=== PATIENT | female | born 1995 | race Caucasian/White ===

== ENCOUNTER 2023-05-06 06:13 | Inpatient (IN) | payer OTHER ==
[2023-05-06] VITALS (59 sets, daily range): BP systolic 97–147; BP diastolic 53–87; PULSE 63–100; TEMP 97.4–98
[~2023-05-06] VITALS: Ht 170.2 cm; Wt 80.9 kg
--- NOTE | 2023-05-06 06:30 | NUR ---
PATIENT ARRIVED ON UNIT.PATIENT AMBULATED TO LDR 5. VITAL SIGNS ARE WNL. REPORTS NO ABNORMAL LEAKING OR BLEEDING. PATIENT REPORTS IRREGULAR CRAMPING. REPORTS REGULAR MOVEMENT. EFM AND TOCO INITIATED. SVE .IV STARTED AND LABS DRAWN. PLAN OF CARE FOR INDUCTION REVIEWED.
[2023-05-06] MEDS ORDERED: PRENATAL MVI PO (06:47)
[2023-05-06] MEDS ORDERED: COLACE 100100 MG/CAP PO (06:48)
[2023-05-06 07:12] LABS: BASO % 0.3 % (0.0-2.0); EOS # 0.1 K/mm3 (0.0-0.7); EOS % 1.2 % (0.0-4.0); GRAN # 4.6 K/mm3 (1.4-6.5); GRAN % 62.9 % (42.2-75.2); HEMOGLOBIN 10.4 g/dl (12.5-16.0); LYMPH # 1.7 K/mm3 (1.2-3.4); LYMPH % 23.4 % (20.0-51.0); MEAN CELL VOLUME 82 fl (80.0-100.0); MEAN CORPUSCULAR HEMOGLOBIN 27 pg (27-31); MEAN CORPUSCULAR HGB CONC 33 g/dl (33.0-37.0); MEAN PLATELET VOLUME 11.1 fl (7.4-10.4); MONO # 0.8 K/mm3 (0.1-0.6); MONO % 11.5 % (1.7-9.3); PLATELET COUNT 165 K/mm3 (130-400); RED BLOOD COUNT 3.84 M/mm3 (4.10-5.30); REDCELL DISTRIBUTION WIDTH-CV 13.3 % (11.5-14.5)
[2023-05-06] MEDS ORDERED: LR & Oxytocin 500 ML IV SCH (07:15)
[2023-05-06] MEDS ORDERED: LR 1,000 ML IV SCH (07:15)
[2023-05-06 07:36] LABS: HEMATOCRIT 31.6 % (37.0-47.0)
--- NOTE | 2023-05-06 09:48 | NUR ---
AT BEDSIDE. FHR TRACING REVIEWED. PLAN OF CARE REVIEWED. SVE 2/-2 KOOK CERVICAL BALLOON PLACED @ 0956 80ML INSTILLED INTO BOTH UTERINE AND VAGINAL BALLOON. PATIENT TOLERATED WELL. PATIENT REPORTS INCREASED CRAMPING WITH PLACEMENT.
--- NOTE | 2023-05-06 11:45 | NUR ---
PATIENT STANDING IN ROOM. WIRELESS MONITOR CONNECTED.
--- NOTE | 2023-05-06 11:45 | NUR ---
INTERMITTENT TRACING OF MOM HR ON FHR MONITOR CORRELATES WITH SPO2 MONITOR
--- NOTE | 2023-05-06 11:45 | NUR ---
PATIENT AMBULATING ON WIRELESS MONITOR
--- NOTE | 2023-05-06 12:08 | NUR ---
PATIENT STANDING IN ROOM. PATIENT ATTACHED TO WIRELESS MONITOR.
[2023-05-06] MEDS ORDERED: NS 10 ML IV ONE ×3 (12:28→20:50)
--- NOTE | 2023-05-06 12:34 | NUR ---
1158 TOMASZ ROBLES AT THE BEDSIDE. PROCEDURE REVIEWED WITH PATIENT AND CONSENT OBTAINED. PATIENT SETUP AT EDGE OF BED FOR EPIDURAL PLACEMENT. 1234 SINGLE SHOT ADMINISTERED. 1240 PATIENT ASSISTED TO LIE ON LEFT SIDE IN BED.
[2023-05-06] MEDS ORDERED: ROPivacaine PF 0.2% 200 ML IV ONE (12:41)
[2023-05-06] MEDS ORDERED: diphenhydrAMINE 50 MG/ML 1 ML VIAL IV PRN (13:00)
[2023-05-06] MEDS ORDERED: Ondansetron 4 MG/2 ML VIAL IV PRN ×2 (13:00→21:15)
[2023-05-06] MEDS ORDERED: Naloxone 0.4 MG/ML VIAL IV PRN ×2 (13:00→21:15)
[2023-05-06] MEDS ORDERED: ePHEDrine 50 MG/10 ML VIAL IV PRN (13:00)
[2023-05-06] MEDS ORDERED: diphenhydrAMINE 25 MG CAP PO PRN (13:00)
--- NOTE | 2023-05-06 13:30 | NUR ---
Attempted SVE by this RN. Unable to assess dilation d/t cervical ripening balloon in place and unable to reach cervix.
--- NOTE | 2023-05-06 15:48 | NUR ---
1542- Dr. Sahu at the bedside. FHR tracing and ctx pattern reviewed. 1544- SVE done. Cervical ripening balloon out. 1548- SVE /[address] Sahu.
--- NOTE | 2023-05-06 17:36 | NUR ---
AT BEDSIDE. FHR TRACING REVIEWED. PLAN OF CARE REVIEWED. SVE /-2 IUPC PLACED AT 1741. MODERATE AMOUNT OF CLEAR FLUID AT TIME OF PLACEMENT.
[2023-05-06] MEDS ORDERED: Oxytocin 10 UNITS/ML VIAL ONE (20:13)
[2023-05-06] MEDS ORDERED: Ondansetron 4 MG/2 ML VIAL ONE (20:13)
[2023-05-06] MEDS ORDERED: Ketorolac 30 MG/ML VIAL ONE (20:28)
[2023-05-06] MEDS ORDERED: dexAMETHasone 10 MG/ML VIAL ONE (20:50)
[2023-05-06] MEDS ORDERED: traZODone 50 MG TAB PO PRN (21:00)
[2023-05-06] MEDS ORDERED: LR 1,000 ML IV PRN (21:15)
[2023-05-06] MEDS ORDERED: Acetaminophen 500 MG TAB PO SCH (21:15)
[2023-05-06] MEDS ORDERED: Loratadine 10 MG TAB PO PRN (21:15)
[2023-05-06] MEDS ORDERED: oxyCODONE 5 MG TAB PO PRN (21:15)
[2023-05-06] MEDS ORDERED: Magnes Hydrox (MOM) 80 MG/ML 30 ML CUP PO PRN (21:15)
[2023-05-06] MEDS ORDERED: Morphine 4 MG/ML VIAL IV PRN (21:15)
[2023-05-06] MEDS ORDERED: Measles/Mumps/Rubella Virus Vaccine Live w Diluent 0.5 ML VIAL SQ SCH (21:15)
[2023-05-07] VITALS (8 sets, daily range): BP systolic 102–122; BP diastolic 44–72; PULSE 63–87; TEMP 97.8–98.5
[2023-05-07] MEDS ORDERED: Ibuprofen 600 MG TAB PO SCH (03:07)
--- NOTE | 2023-05-07 05:10 | NUR ---
PT ABLE TO AMBULATE TO BR WITH STANDBY ASSIST. ROSEMARY CARE COMPLETED. PT DECLINED MÉNDEZ CATH REMOVAL. STATES SHE WISHES TO REST FOR A BIT MORE BEFORE IT IS REMOVED AND SHE WILL BE NEEDING TO MAKE TRIPS TO THE BR. PT AMBULATED BACK TO BED WITH STANDBY ASSIST. INCENTIVE SPIROMETER GIVEN TO PT. PT VERBALIZED UNDERSTANDING OF USE AND VERBALIZED DESIRED FREQUENCY OF USE.
[2023-05-07] MEDS ORDERED: Sennosides/Docusate 8.6-50 MG TAB PO SCH (08:00)
[2023-05-07] MEDS ORDERED: IBU600 MG PO (08:49)
[2023-05-07] MEDS ORDERED: ROXICODONE 55 MG/TAB PO (08:50)
--- NOTE | 2023-05-07 09:10 | NUR ---
Initial visit; Parents thanked Engine Tester for looking in on them and offering congratulations and God's blessings for the of their son. Engine Tester thanked family for choosing [facility]. Family had positive things to report from their experience with our OB Department and nurses and everyone.
[2023-05-08 07:20] VITALS: BP 109/45; PULSE 71; TEMP 97.6
[2023-05-08 17:00] VITALS: BP 104/53; PULSE 96; TEMP 98.1
[2023-05-08 20:43] VITALS: BP 102/65; PULSE 89; TEMP 98.8
[2023-05-09 07:45] VITALS: BP 128/64; PULSE 94; TEMP 98.1
== END 2023-05-09 12:55 | disposition home or self-care (01) | DRG 788 ==
LOC: LDR 06:13 → OB 06:13 → LDR 21:06 → OB 05-07 00:33
PROVIDERS: ADMIT Obstetrics & Gynecology
PROC: 10D00Z1 Extraction of Products of Conception, Low, Open Approach (ICD-10-PCS; principal; 2023-05-06)
PROC: 3E033VJ Introduction of Other Hormone into Peripheral Vein, Percutaneous Approach (ICD-10-PCS; 2023-05-06)
PROC: 0U7C7ZZ Dilation of Cervix, Via Natural or Artificial Opening (ICD-10-PCS; 2023-05-06)
PROC: 10907ZC Drainage of Amniotic Fluid, Therapeutic from Products of Conception, Via Natural or Artificial Opening (ICD-10-PCS; 2023-05-06)
DX: O48.0 Post-term pregnancy (principal); Z37.0 Single live birth; O76 Abnormality in fetal heart rate and rhythm complicating labor and delivery; O62.0 Primary inadequate contractions; O99.892 Other specified diseases and conditions complicating childbirth; N80.102 Endometriosis of left ovary, unspecified depth; O43.123 Velamentous insertion of umbilical cord, third trimester; Z3A.40 40 weeks gestation of pregnancy
CPT/HCPCS: J0665; J0690; J1100; J1885; J2405; J2590; J2795; J7120